=== PATIENT | female | born 1975 | race Asian ===

== ENCOUNTER 2020-04-19 08:37 | Inpatient (IN) | payer OTHER, SELFPAY ==
[~2020-04-19] VITALS: Ht 160 cm; Wt 78.5 kg
[2020-04-19 08:37] VITALS: BP_SYST 129
[2020-04-19 09:30] LABS: BASOPHILS # (AUTO) 0.1 K/uL (0.0-0.2); BASOPHILS % (AUTO) 0.5 % (0.0-2.0); EOSINOPHILS # (AUTO) 0.1 K/uL (0.0-0.4); EOSINOPHILS % (AUTO) 1.1 % (0.0-4.0); LYMPHOCYTES # (AUTO) 2.1 K/uL (1.0-5.5); LYMPHOCYTES % (AUTO) 18.6 % (20.5-51.5); MEAN CORPUSCULAR HEMOGLOBIN 26 pg (27-31); MEAN CORPUSCULAR HGB CONC 33 % (32-36); MEAN CORPUSCULAR VOLUME 80 fL (79.0-98.0); MONOCYTES # (AUTO) 0.9 K/uL (0.0-1.0); MONOCYTES % (AUTO) 7.7 % (1.7-9.3); NEUTROPHILS # (AUTO) 8.1 K/uL (1.8-7.7); NEUTROPHILS % (AUTO) 72.1 % (40.0-70.0); PLATELET COUNT (AUTO) 371 K/uL (130-430); RED BLOOD CELL COUNT(AUTO) 2.47 MIL/uL (4.2-6.2); RED CELL DISTRIBUTION WIDTH 16.4 % (9.0-15.0); WHITE BLOOD COUNT (AUTO) 11.3 K/uL (4.8-10.8)
[2020-04-19 09:48] LABS: PROTHROMBIN TIME 10.1 SECS (9.5-12.5)
[2020-04-19 09:57] LABS: CALCIUM 8.2 mg/dL (8.4-11.0); CREATININE 0.95 mg/dL (0.55-1.30); POTASSIUM 3.7 mmol/L (3.5-5.1)
[2020-04-19 10:03] LABS: ALBUMIN 3.5 g/dL (3.4-4.8); TOTAL BILIRUBIN 0.9 mg/dL (0.0-1.0)
[2020-04-19 10:15] LABS: BILIRUBIN,URINE NEGATIVE (NEGATIVE); BLOOD, URINE NEGATIVE (NEGATIVE); CLARITY/URINE CLEAR (CLEAR); COLOR,URINE YELLOW (YELLOW); GLUCOSE,URINE 1+ (NEGATIVE); KETONES,URINE NEGATIVE (NEGATIVE); LEUKOCYTE ESTERASE ,URINE NEGATIVE (NEGATIVE); NITRITE, URINE NEGATIVE (NEGATIVE); PH,URINE 5.5 (5.0-8.0); PROTEIN URINE TRACE (NEGATIVE); UROBILINOGEN,URINE 0.2 (0.2-1.0)
[2020-04-19 10:25] LABS: HEMOGLOBIN 6.4 g/dL (12.0-16.0)
[2020-04-19 10:26] LABS: HEMATOCRIT 19.6 % (36-48)
[2020-04-19 10:28] LABS: BARBITURATE, URINE NEGATIVE (NEG <=200); BENZODIAZEPINE, URINE POSITIVE (NEG <=150); CANNABINOID, URINE NEGATIVE (NEG <=50); COCAINE, URINE NEGATIVE (NEG <=150); METHAMPHETAMINES SCREEN,URINE NEGATIVE (NEG <=500); OPIATE, URINE NEGATIVE (NEG <=100); PHENCYCLIDINE SCREEN,URINE NEGATIVE (NEG <=25); UR TRICYCLIC ANTIDEPRESSANTS NEGATIVE (NEG <=300); URINE AMPHETAMINE NEGATIVE (NEG <=500); URINE METHADONE NEGATIVE (NEG <=200); URINE OXYCODONE SCREEN NEGATIVE (NEG <=100); URINE PROPOXYPHENE SCREEN NEGATIVE (NEG <=300)
[2020-04-19 10:40] LABS: RBC,URINE 0-3 /HPF (0-3); WBC,URINE 0-3 /HPF (0-3)
[2020-04-19 10:41] LABS: BACTERIA,URINE FEW /HPF (None Seen)
[2020-04-19] MEDS ORDERED: MORPHINE 2 MG/ML INJ. SYRINGE IVP PRN ×2 (11:15)
[2020-04-19] MEDS ORDERED: DOCUSATE SODIUM 100 MG CAPSULE PO PRN (11:15)
[2020-04-19] MEDS ORDERED: ZOLPIDEM TARTRATE 5 MG TABLET PO PRN (11:15)
[2020-04-19] MEDS ORDERED: MUPIROCIN 2% TOPICAL OINTMENT 22 GM NS PRN (11:15)
[2020-04-19] MEDS ORDERED: MAGNESIUM SULFATE 50 ML IV PRN (11:15)
[2020-04-19] MEDS ORDERED: ONDANSETRON HCL 4 MG/2 ML VIAL IVP PRN (11:15)
[2020-04-19] MEDS ORDERED: ACETAMINOPHEN 325 MG TABLET PO PRN (11:15)
[2020-04-19] MEDS ORDERED: POTASSIUM CHLORIDE 20 MEQ TAB.PRT.SR PO PRN (11:15)
[2020-04-19] MEDS ORDERED: DEXTROSE 50% JECT 50 ML DISP.SYRIN IVP PRN (11:15)
[2020-04-19] MEDS ORDERED: LORazepam 2 MG/ML VIAL IVP PRN (11:15)
[2020-04-19 11:32] LABS: HCG,QUAL RESULT NEGATIVE (NEGATIVE)
[2020-04-19 12:13] LABS: TOTAL IRON BIND. CAPACITY 468 ug/dL (250-450)
[2020-04-19] MEDS: cefTRIAXone 1 GM in D5W 50 ML IV SCH (12:24)
[2020-04-19] MEDS: INSULIN LISPRO SLIDING SCALE 100 UNITS/ML VIAL (humaLOG) SUBCUT PRN ×2 (12:25→18:26)
[2020-04-19 12:37] VITALS: BP_SYST 112
[2020-04-19] MEDS ORDERED: TICA90TA PO (12:58)
[2020-04-19] MEDS ORDERED: NITR100C PO (12:58)
[2020-04-19] MEDS ORDERED: TOPXL100 PO (12:58)
[2020-04-19] MEDS ORDERED: LIP40 PO (12:58)
[2020-04-19] MEDS ORDERED: LOSA100T3 PO (12:58)
[2020-04-19] MEDS ORDERED: GLU500 PO (12:58)
[2020-04-19] MEDS ORDERED: ASPI-1155 PO (12:58)
[2020-04-19] MEDS: metFORMIN HCL 500 MG TABLET PO SCH (18:25)
[2020-04-20 00:18] VITALS: BP_SYST 124
[2020-04-20] MEDS: ATORVASTATIN 20 MG TABLET PO SCH ×2 (00:18→20:58)
[2020-04-20 04:00] VITALS: BP_SYST 119
[2020-04-20 06:57] LABS: BASOPHILS # (AUTO) 0.1 K/uL (0.0-0.2); BASOPHILS % (AUTO) 0.6 % (0.0-2.0); EOSINOPHILS # (AUTO) 0.2 K/uL (0.0-0.4); EOSINOPHILS % (AUTO) 1.9 % (0.0-4.0); LYMPHOCYTES % (AUTO) 22.2 % (20.5-51.5); MEAN CORPUSCULAR HEMOGLOBIN 27 pg (27-31); MEAN CORPUSCULAR HGB CONC 34 % (32-36); MEAN CORPUSCULAR VOLUME 79 fL (79.0-98.0); MONOCYTES # (AUTO) 0.7 K/uL (0.0-1.0); MONOCYTES % (AUTO) 7.7 % (1.7-9.3); NEUTROPHILS # (AUTO) 6.2 K/uL (1.8-7.7); NEUTROPHILS % (AUTO) 67.6 % (40.0-70.0); PLATELET COUNT (AUTO) 330 K/uL (130-430); RED BLOOD CELL COUNT(AUTO) 2.64 MIL/uL (4.2-6.2); RED CELL DISTRIBUTION WIDTH 16.3 % (9.0-15.0); WHITE BLOOD COUNT (AUTO) 9.2 K/uL (4.8-10.8)
[2020-04-20 07:46] LABS: CREATININE 0.78 mg/dL (0.55-1.30); POTASSIUM 3.8 mmol/L (3.5-5.1)
[2020-04-20 07:50] LABS: HEMATOCRIT 20.8 % (36-48)
[2020-04-20 08:06] LABS: FOLATE (FOLIC ACID) >20.0 ng/mL (>3.0)
[2020-04-20] MEDS ORDERED: METOPROLOL SUCCINATE 50 MG TAB.SR.24H (TOPROL XL) PO SCH (09:00)
[2020-04-20] MEDS ORDERED: LOSARTAN POTASSIUM 50 MG TABLET (COZAAR) PO SCH (09:00)
[2020-04-20] MEDS ORDERED: LOSARTAN POTASSIUM 50 MG TABLET (COZAAR) PO ONE (09:00)
[2020-04-20] MEDS ORDERED: METOPROLOL SUCCINATE 50 MG TAB.SR.24H (TOPROL XL) PO ONE (09:00)
[2020-04-20] MEDS: metFORMIN HCL 500 MG TABLET PO SCH ×2 (09:59→17:24)
[2020-04-20 12:00] VITALS: BP_SYST 105
[2020-04-20] MEDS: cefTRIAXone 1 GM in D5W 50 ML IV SCH (13:22)
[2020-04-20 16:00] VITALS: BP_SYST 121
[2020-04-20] MEDS: INSULIN LISPRO SLIDING SCALE 100 UNITS/ML VIAL (humaLOG) SUBCUT PRN ×2 (17:23→21:07)
[2020-04-20 19:00] VITALS: BP_SYST 129
[2020-04-20 20:00] VITALS: BP_SYST 129
[2020-04-21] VITALS: BP_SYST 128
[2020-04-21 07:15] LABS: CALCIUM 8.1 mg/dL (8.4-11.0); CREATININE 0.79 mg/dL (0.55-1.30); POTASSIUM 3.6 mmol/L (3.5-5.1)
[2020-04-21 07:21] LABS: BASOPHILS # (AUTO) 0.1 K/uL (0.0-0.2); BASOPHILS % (AUTO) 0.5 % (0.0-2.0); EOSINOPHILS # (AUTO) 0.3 K/uL (0.0-0.4); HEMATOCRIT 25.4 % (36-48); HEMOGLOBIN 8.4 g/dL (12.0-16.0); LYMPHOCYTES # (AUTO) 2.4 K/uL (1.0-5.5); LYMPHOCYTES % (AUTO) 22.2 % (20.5-51.5); MEAN CORPUSCULAR HEMOGLOBIN 27 pg (27-31); MEAN CORPUSCULAR HGB CONC 33 % (32-36); MEAN CORPUSCULAR VOLUME 82 fL (79.0-98.0); MONOCYTES # (AUTO) 0.9 K/uL (0.0-1.0); MONOCYTES % (AUTO) 8.1 % (1.7-9.3); NEUTROPHILS # (AUTO) 7.2 K/uL (1.8-7.7); NEUTROPHILS % (AUTO) 66.2 % (40.0-70.0); PLATELET COUNT (AUTO) 338 K/uL (130-430); RED BLOOD CELL COUNT(AUTO) 3.09 MIL/uL (4.2-6.2); RED CELL DISTRIBUTION WIDTH 15.9 % (9.0-15.0); WHITE BLOOD COUNT (AUTO) 10.9 K/uL (4.8-10.8)
[2020-04-21 08:06] VITALS: BP_SYST 121
[2020-04-21] MEDS: metFORMIN HCL 500 MG TABLET PO SCH ×2 (08:57→17:58)
[2020-04-21] MEDS: METOPROLOL SUCCINATE 50 MG TAB.SR.24H (TOPROL XL) PO SCH (08:57)
[2020-04-21] MEDS: LOSARTAN POTASSIUM 50 MG TABLET (COZAAR) PO SCH (08:58)
[2020-04-21] MEDS: cefTRIAXone 1 GM in D5W 50 ML IV SCH (11:43)
[2020-04-21] MEDS: INSULIN LISPRO SLIDING SCALE 100 UNITS/ML VIAL (humaLOG) SUBCUT PRN ×3 (11:47→20:34)
[2020-04-21 12:08] VITALS: BP_SYST 125
[2020-04-21 13:19] LABS: HEMOGLOBIN A1C 9.2 % (4.8-5.6)
[2020-04-21 13:20] LABS: FERRITIN 8 ng/mL (15-150)
[2020-04-21 16:00] VITALS: BP_SYST 122
[2020-04-21 20:00] VITALS: BP_SYST 119
[2020-04-21] MEDS: ATORVASTATIN 20 MG TABLET PO SCH (20:30)
[2020-04-22] VITALS: BP_SYST 115
[2020-04-22] MEDS: INSULIN LISPRO SLIDING SCALE 100 UNITS/ML VIAL (humaLOG) SUBCUT PRN ×4 (06:47→21:13)
[2020-04-22 06:49] LABS: BASOPHILS % (AUTO) 0.3 % (0.0-2.0); EOSINOPHILS # (AUTO) 0.4 K/uL (0.0-0.4); EOSINOPHILS % (AUTO) 3.8 % (0.0-4.0); HEMATOCRIT 24.8 % (36-48); HEMOGLOBIN 8.1 g/dL (12.0-16.0); LYMPHOCYTES # (AUTO) 2.4 K/uL (1.0-5.5); MEAN CORPUSCULAR HEMOGLOBIN 27 pg (27-31); MEAN CORPUSCULAR HGB CONC 33 % (32-36); MEAN CORPUSCULAR VOLUME 82 fL (79.0-98.0); MONOCYTES # (AUTO) 1.1 K/uL (0.0-1.0); MONOCYTES % (AUTO) 9.7 % (1.7-9.3); NEUTROPHILS % (AUTO) 64.2 % (40.0-70.0); PLATELET COUNT (AUTO) 356 K/uL (130-430); RED BLOOD CELL COUNT(AUTO) 3.04 MIL/uL (4.2-6.2); RED CELL DISTRIBUTION WIDTH 15.4 % (9.0-15.0)
[2020-04-22 07:19] LABS: CALCIUM 8.3 mg/dL (8.4-11.0); CREATININE 0.86 mg/dL (0.55-1.30); POTASSIUM 3.9 mmol/L (3.5-5.1)
[2020-04-22 08:00] VITALS: BP_SYST 133
[2020-04-22] MEDS: metFORMIN HCL 500 MG TABLET PO SCH ×2 (08:03→18:17)
[2020-04-22] MEDS: METOPROLOL SUCCINATE 50 MG TAB.SR.24H (TOPROL XL) PO SCH (09:31)
[2020-04-22] MEDS: LOSARTAN POTASSIUM 50 MG TABLET (COZAAR) PO SCH (10:26)
[2020-04-22 12:00] VITALS: BP_SYST 116
[2020-04-22] MEDS: cefTRIAXone 1 GM in D5W 50 ML IV SCH (12:11)
[2020-04-22 15:16] VITALS: BP_SYST 133
[2020-04-22 16:10] VITALS: BP_SYST 118
[2020-04-22 20:00] VITALS: BP_SYST 133
[2020-04-22] MEDS ORDERED: CITALOPRAM HYDROBROMIDE 20 MG TABLET PO SCH (21:00)
[2020-04-22] MEDS ORDERED: CITALOPRAM HYDROBROMIDE 20 MG TABLET ONE (21:02)
[2020-04-22] MEDS: ATORVASTATIN 20 MG TABLET PO SCH (21:10)
[2020-04-23] VITALS: BP_SYST 135
[2020-04-23] MEDS: INSULIN LISPRO SLIDING SCALE 100 UNITS/ML VIAL (humaLOG) SUBCUT PRN (06:09)
[2020-04-23 06:18] LABS: BASOPHILS # (AUTO) 0.1 K/uL (0.0-0.2); BASOPHILS % (AUTO) 0.4 % (0.0-2.0); EOSINOPHILS # (AUTO) 0.4 K/uL (0.0-0.4); EOSINOPHILS % (AUTO) 3.3 % (0.0-4.0); HEMATOCRIT 24.8 % (36-48); LYMPHOCYTES # (AUTO) 2.8 K/uL (1.0-5.5); LYMPHOCYTES % (AUTO) 22.4 % (20.5-51.5); MEAN CORPUSCULAR HEMOGLOBIN 26 pg (27-31); MEAN CORPUSCULAR HGB CONC 32 % (32-36); MEAN CORPUSCULAR VOLUME 82 fL (79.0-98.0); MONOCYTES # (AUTO) 1.1 K/uL (0.0-1.0); NEUTROPHILS % (AUTO) 64.9 % (40.0-70.0); PLATELET COUNT (AUTO) 351 K/uL (130-430); RED BLOOD CELL COUNT(AUTO) 3.03 MIL/uL (4.2-6.2); RED CELL DISTRIBUTION WIDTH 15.9 % (9.0-15.0); WHITE BLOOD COUNT (AUTO) 12.3 K/uL (4.8-10.8)
[2020-04-23 06:52] LABS: CALCIUM 8.4 mg/dL (8.4-11.0); CREATININE 0.83 mg/dL (0.55-1.30); POTASSIUM 4.2 mmol/L (3.5-5.1)
[2020-04-23] MEDS ORDERED: FERR-31 PO (08:35)
[2020-04-23] MEDS ORDERED: ESCI20TA PO (08:35)
[2020-04-23] MEDS ORDERED: ASPIRIN 81 MG TAB.CHEW PO SCH (09:00)
[2020-04-23] MEDS: metFORMIN HCL 500 MG TABLET PO SCH (09:19)
[2020-04-23] MEDS: METOPROLOL SUCCINATE 50 MG TAB.SR.24H (TOPROL XL) PO SCH (09:20)
[2020-04-23] MEDS: LOSARTAN POTASSIUM 50 MG TABLET (COZAAR) PO SCH (09:20)
[2020-04-23 10:43] VITALS: BP_SYST 115
[2020-04-23 11:02] VITALS: BP_SYST 115
[2020-04-23] MEDS: cefTRIAXone 1 GM in D5W 50 ML IV SCH (12:00)
[2020-04-23 12:18] VITALS: BP_SYST 128
[2020-04-23 12:53] VITALS: BP_SYST 128
[2020-04-23 16:26] VITALS: BP_SYST 132
== END 2020-04-23 17:55 | disposition home or self-care (01) | DRG 760 ==
LOC: SED 08:37 → SMU 11:19
PROVIDERS: ADMIT General Practice; ATTEND General Practice
PROC: 30233N1 Transfusion of Nonautologous Red Blood Cells into Peripheral Vein, Percutaneous Approach (ICD-10-PCS; principal; 2020-04-19)
DX: N92.0 Excessive and frequent menstruation with regular cycle (principal); N39.0 Urinary tract infection, site not specified; D50.0 Iron deficiency anemia secondary to blood loss (chronic); E66.9 Obesity, unspecified; I10 Essential (primary) hypertension; E11.65 Type 2 diabetes mellitus with hyperglycemia; F32.9 Major depressive disorder, single episode, unspecified; E78.5 Hyperlipidemia, unspecified; D21.9 Benign neoplasm of connective and other soft tissue, unspecified; Z20.822 Contact with and (suspected) exposure to COVID-19; R93.89 Abnormal findings on diagnostic imaging of other specified body structures; F43.20 Adjustment disorder, unspecified; I25.10 Atherosclerotic heart disease of native coronary artery without angina pectoris; N85.2 Hypertrophy of uterus; Z79.82 Long term (current) use of aspirin; Z79.84 Long term (current) use of oral hypoglycemic drugs; I25.2 Old myocardial infarction; Z79.899 Other long term (current) drug therapy; Z95.5 Presence of coronary angioplasty implant and graft; Z68.30 Body mass index [BMI] 30.0-30.9, adult
CPT/HCPCS: 36415; 70450-TC; 71045; 76376; 76830-TC; 76856-TC; 76857; 80048; 80053; 80307; 81000-TC; 82140-TC; 82607; 82728; 82746; 82962; 83036; 83540-TC; 83550-TC; 83605; 83735-TC; 84484; 84703; 85025; 85610-TC; 85730-TC; 86886; 86900; 86901; 86920; 87040-TC; 87081; 87086; 93005; 99291; J0696; J2270; J7060; P9021